=== PATIENT | female | born 1950 | race Caucasian/White ===

== ENCOUNTER → 2017-01-04 | Outpatient (CLI) | payer OTHER ==
--- NOTE | 2017-01-04 11:35 | RAD ---
DATE: 01/04/2017. EXAM: DIGITAL DIAGNOSTIC LT. HISTORY: Six-month follow-up left breast densities. COMPARISON: 05/04/2016. This study was interpreted with the benefit of Computerized Aided Detection (CAD). Left MLO and spot compression MLO images were obtained. FINDINGS: The breast parenchyma shows scattered fibroglandular densities. Densities of concern superolaterally on the left result in their former appearance on spot compression. A few scattered calcifications appear benign. There is no clearly suspicious finding. BI-RADS CATEGORY: 2 BENIGN FINDING(S). RECOMMENDED FOLLOW-UP: 6M 6 MONTH FOLLOW-UP. Resume bilateral screening mammography in 6 months. PQRS compliance statement: Patient information was entered into a reminder system with a target due date 07/07/2017 for the next mammogram. Mammography is a sensitive method for finding small breast cancers, but it does not detect them all and is not a substitute for careful clinical examination. A negative mammogram does not negate a clinically suspicious finding and should not result in delay in biopsying a clinically suspicious abnormality. "Our facility is accredited by the [employer] Mammography [employer]."
== END | disposition home or self-care (01) ==
LOC: MAMMO 09:34
PROVIDERS: ATTEND Family Medicine
DX: R92.8 Other abnormal and inconclusive findings on diagnostic imaging of breast (principal)
CPT/HCPCS: G0206; 77065

== ENCOUNTER → 2018-02-14 | Outpatient (CLI) | payer OTHER | END | disposition home or self-care (01) | LOC: KCIC MAMMO 10:39 | DX: Z12.31 Encounter for screening mammogram for malignant neoplasm of breast (principal) | CPT/HCPCS: 77063; 77067 ==

== ENCOUNTER → 2020-08-03 | Outpatient (CLI) | payer OTHER ==
[~2020-08-03] MED LIST: GADOTERATE 7.5 MMOL/15ML VIAL. IVP ONE; HYDR12.575 PO; LISI10TA2 PO
--- NOTE | 2020-08-03 10:54 | KCIC ---
BRAIN WO/W CONTRAST Date: 08/03/2020 8:45 AM Indication: SENSORINEURO HEARING LOSS. Progressing left sided hearing loss, new onset of vertigo. Comparison: None. Technique: Multiplanar multisequence MRI of the brain was performed with and without intravenous contrast with dedicated views of the temporal bones and internal auditory canals. 14 cc Clariscan contrast was administered intravenously during the exam. Findings: No acute infarct. No acute or chronic hemorrhage. The ventricles are normal in size and configuration without hydrocephalus. Mild scattered FLAIR hyperintensities in the subcortical and periventricular deep white matter, a nonspecific finding, most commonly seen with chronic small vessel ischemic disease. Both 7th and 8th nerve complexes are well visualized and normal. No mass within the internal auditory canal or cerebellopontine angle. The cochlear forms are normal with normal fluid signal within cochlea. The semicircular canals are normal. No abnormal enhancement. The scalp and calvarium are normal. Partial empty sella. No Chiari malformation. The visualized upper cervical spine is normal. The visualized orbits and globes are normal. The visualized paranasal sinuses are clear. Left middle ear and mastoid fluid. Normal flow voids within the vertebral, basilar, and internal carotid arteries indicating patency. IMPRESSION: 1. Left middle ear and mastoid effusion, which could represent otomastoiditis in the appropriate clinical setting. 2. No acute infarct or hemorrhage. No mass or abnormal enhancement. 3. Mild scattered FLAIR hyperintensities in the subcortical and periventricular deep white matter, a nonspecific finding, most commonly seen with chronic small vessel ischemic disease. Electronically signed by: Prateek Boone MD (08/03/2020 10:52 AM) [id number]
== END ==
LOC: KCIC MRI 08:30
PROVIDERS: ATTEND Otolaryngology
DX: H92.12 Otorrhea, left ear (principal); H90.5 Unspecified sensorineural hearing loss
CPT/HCPCS: 70553; 82565; A9575